=== PATIENT | male | born 1970 | race Caucasian/White ===

== ENCOUNTER → 2016-12-04 | Outpatient (CLI) | payer BC ==
[2016-12-04 19:18] LABS: AMYLASE 115 U/L (30-110); LIPASE 823 U/L (23-300)
[2016-12-04 19:33] LABS: TROPONIN-I < 0.012 ng/mL (0.000-0.034)
== END ==
LOC: ZCOL.LAB 17:58
PROVIDERS: Family Medicine
DX: R07.9 Chest pain, unspecified (principal)

== ENCOUNTER → 2016-12-13 | Outpatient (CLI) | payer BC | LOC: COL.RAD 10:19 | DX: Z01.89 Encounter for other specified special examinations (principal) ==

== ENCOUNTER → 2016-12-14 | Outpatient (CLI) | payer BC | LOC: COL.RAD 07:30 | DX: K85.90 Acute pancreatitis without necrosis or infection, unspecified (principal) ==